=== PATIENT | female | born 1960 | race Hispanic/Latino ===

== ENCOUNTER → 2016-05-05 | Outpatient (CLI) | payer OTHER ==
[2016-05-05 08:34] LABS: BILIRUBIN,TOTAL 0.5 mg/dL (0.3-1.2); CALCIUM 9.7 mg/dL (8.7-10.7); LDL CHOLESTEROL,CALCULATED 52.8 mg/dL; POTASSIUM 5.3 meq/L (3.8-5.2)
[2016-05-05 08:36] LABS: HEMOGLOBIN A1C 9.27 % (4.2-6.0); MEAN BLOOD GLUCOSE (CALC) 222.691 mg/dL
== END ==
LOC: LAB 08:09
PROVIDERS: ATTEND Nurse Practitioner Family
DX: E11.9 Type 2 diabetes mellitus without complications (principal); Z79.4 Long term (current) use of insulin; E78.5 Hyperlipidemia, unspecified; I10 Essential (primary) hypertension
CPT/HCPCS: 36415; 80048; 82247; 82465; 82550; 82977; 83036; 83718; 84075; 84450; 84460; 84478

== ENCOUNTER → 2016-08-27 | Outpatient (CLI) | payer OTHER ==
[2016-08-27 08:31] LABS: HEMOGLOBIN A1C 8.08 % (4.2-6.0)
[2016-08-27 08:52] LABS: BUN/CREATININE RATIO 16.15 (6-20); CALCIUM 9.3 mg/dL (8.7-10.7); CHOL/HDL RATIO 2.82 RATIO (0-4.0); LDL CHOLESTEROL,CALCULATED 48.6 mg/dL
== END ==
LOC: LAB 08:02
PROVIDERS: ATTEND Nurse Practitioner Family
DX: E11.9 Type 2 diabetes mellitus without complications (principal); E78.5 Hyperlipidemia, unspecified; I10 Essential (primary) hypertension
CPT/HCPCS: 36415; 80048; 82247; 82465; 82550; 82977; 83036; 83718; 84075; 84450; 84460; 84478